=== PATIENT | male | born 1950 | race Caucasian/White ===

== ENCOUNTER 2017-10-18 09:38 | Inpatient (IN) | payer OTHER ==
--- NOTE | 2017-10-18 11:22 | PDOC ---
History of Present Illness - General Chief Complaint: Lightheaded Stated Complaint: DIZZINESS Time Seen by Provider: 10/18/17 10:16 - History of Present Illness Initial Comments: Ovidio Boothe is a 67yo man who comes in complaining of vertigo for one week. He states that approximately a week ago he started to experience vertigo after standing up. The symptoms started after a recent cruise. He went to see his primary physician, Dr Dax Bradshaw, over the weekend and had an EKG as well as testing for orthostatic hypotension. At that time, he was found to be orthostatic. Per Dr Bradshaw, his SBP dropped from 160 to 120 on standing, and his symptoms improved with BP support. Mr Boothe reports that since Tuesday, he has continued to have the same symptoms of vertigo when standing and has spent the majority of the time laying in bed. He has not had any fevers or chills, headache, cough, nausea/vomiting, focal weakness or numbness, changes in vision. He states that he has had adequate PO intake and has been staying well hydrated. Dr Bradshaw was contacted, and he states that he had planned to obtain a CTA or MRA carotid due to recent carotid US indicating ~65% left carotid stenosis. He felt that the presentation on Tuesday was most consistent with orthostatic hypotension. Past History - Past Medical History Allergies/Adverse Reactions: Allergies Allergy/AdvReac Type Severity Reaction Status Date / Time No Known Allergies Allergy Verified 10/18/17 09:58 Home Medications: Ambulatory Orders Cetirizine HCl [Zyrtec -] 10 mg PO DAILY 10/18/17 Nifedipine ER [Procardia Xl -] 60 mg PO DAILY 10/18/17 Omeprazole 20 mg PO DAILY 10/18/17 - Suicide/Smoking/Psychosocial Hx Smoking History: Never smoked Review of Systems - Review of Systems Comments:: General: No recent weight change. +fatigue HEENT: No vision changes, no hearing changes, no sore throat, no congestion Cards: No chest pain, no racing heart, no palpitations PUlm: No SOB, no cough, no wheezing GI: +heartburn, no nausea or vomiting, no change in bowel habits : No frequency, no urgency, no dysuria Endo: No excessive thirst, no temperature intolerance Heme: No unusual bruising or bleeding Vasc: No claudication Skin: No rash or lesions Neuro: No focal numbness, no focal weakness, no LOC. +vertigo Psych: No change in mood *Physical Exam - Vital Signs Last Vital Signs Temp Pulse Resp BP Pulse Ox 99.5 F 85 16 154/72 99 10/18/17 09:58 10/18/17 09:58 10/18/17 09:58 10/18/17 09:58 10/18/17 09:58 - Physical Exam Comments: 10/18/17 13:27 General: Comfortable in bed, no acute distress, appears stated age HEENT: PERRL, EOMI. Slight right-sided nystagmus. MMM, neck ROM intact Cards: RRR, no murmur noted Pulm: Comfortable on room air. Clear to auscultation bilaterally Abd: Soft, nontender, nondistended Rectal: No gross bleeding, tone intact, no external lesions, no masses palpated. Stool dark Ext: Warm, well perfused. Palpable distal pulses Neuro: A&O x3, CN grossly intact, strength 5/5 and equal bilaterally, sensation to light tough intact. Able to ambulate without loss of balance ED Treatment Course - LABORATORY CBC & Chemistry Diagram: 10/18/17 11:25 10/18/17 11:25 Medical Decision Making - Medical Decision Making Ovidio Boothe is a 67yo man with a PMH of kidney donation, now with one kidney , and CKD who presents with complaint of vertigo after standing for the past week. He was recently diagnosed with orthostatic hypotension on 10/15/17 but his symptoms have persisted. He does also have a carotid ultrasound indicating 65% carotid stenosis according to his primary physician. Concerning for posterior/cerebellar infarct or dissection, especially considering his known carotid stenosis, description of the symptoms as vertigo rather than lightheadedness, right eye nystagmus on exam, and persistence of symptoms over multiple days without improvement. Also consider continued orthostatic hypotension. - CBC, CMP, troponin, EKG - Repeat orthostatics - Noncontrast CT head for possible recent CVA causing onset of symptoms - MRA head and neck ordered to evaluate vasculature. Will avoid CTA as patient only has one kidney and has elevated Cr to over 1.4 on recent labs - 25mg meclizine for vertigo Labs returned with anemia with hgb down to 7.7, elevated LFTs, cr at baseline 1.4. - Symptoms improved following meclizine - Stool guaiac sent. On specific questioning, patient does admit to very dark stools at times as well as jail heartburn - GI consulted per request of Dr Bradshaw to evaluate for possible bleeding. No record of colonoscopy in chart - Blood transfusion declined by patient as he is a Mandaen - 40mg IV protonix ordered due to possible GI bleed Stool returned guaiac positive. Discussed patient refusal of transfusion with Dr Bradshaw; hematology consulted per request. Plan to admit for additional workup vertigo/dizziness most likely secondary to acute blood loss anemia from GI source. Patient discussed with Dr Rios. Hilary Raza PGY1 *DC/Admit/Observation/Transfer Diagnosis at time of Disposition: Upper GI bleed - Discharge Dispostion Decision to Admit order: Yes - Referrals - Patient Instructions - Post Discharge Activity
--- NOTE | 2017-10-18 11:22 | PDOC ---
Attending Attestation - ED Attending Attestation I have performed the following: I have examined & evaluated the patient, The case was reviewed & discussed with the resident, I agree w/resident's findings & plan - HPI HPI: 10/18/17 12:29 The patient is a 67 year old male, accompanied by , with a significant PMH of nephrectomy, who presents to the emergency department with 4 days of intermittent dizziness described as a room spinning sensation. The patient states he arrived from a 9 day cruise on Tuesday and when leaving the cruise ship began to experience the dizziness sensation. The patient states he did not experience the dizziness while on the cruise and felt well. The patient states he saw his PCP Dr. Maxi Bradshaw on Tuesday for a 2 day complaint of heartburn and was prescribed Prilosec with relief of the heartburn. The patient states he did not receive medication for the dizziness at that time. The patient also endorses feeling generalized weakness secondary to the dizziness and states the dizziness is made worse with movement. The patient denies any recent falls or trauma. The patient denies any history of blood clots or DVT. The patient denies chest pain, palpitations, calf swelling or tenderness, shortness of breath, or headache. Denies fever, chills, nausea, vomit, diarrhea and constipation. Denies dysuria, frequency, urgency and hematuria. Allergies: NKA Past surgical history: nephrectomy - Physicial Exam PE: 10/18/17 12:30 General: Well appearing, awake and alert, NAD. HEENT: PERRL, EOMI, +right sided nystagmus (nonvertical, no rotary), normal conjunctiva, aniceteric, moist mucus membranes Neck: neck supple, FROM, no JVD, LAD or masses; no carotid bruit Lungs: CTAB, normal and even respirations, no respiratory distress Heart: RRR, no murmurs, 2+ peripheral pulses throughout, no peripheral edema Abdomen: soft, NTND, no peritoneal signs. No CVAT Back: nontender, normal inspection and ROM MSK: no edema, TYLER x4, ROM intact. No clubbing or cyanosis. normal bulk and tone. Neuro: Alert, oriented to person time and place. CN II-XII grossly intact. Strength prox and distally 5/5 throughout. Sensation grossly intact to light touch. TYLER x4. No cerebellar signs, no dysmetria, bilateral finger to nose and heel to pond equal and symmetric. Skin: warm and well perfused, cap refill <2 sec, normal color; no rash <Jaspal Nelson - Last Filed: 10/18/17 13:05> - Resident Resident Name: Hilary Raza - Medical Decision Making 10/18/17 11:19 67-year-old presenting with HTN p/w vertigo / dizziness with movement and positional changes x 1 week, worse x 4 days.. recently on cruise ship. seen by pmd this past weekend. DDx. central vertigo, vertebral dissection, cervical dissection, vertebrobasilar insufficiency, SAH, ICH, BPPV, peripheral vertigo, labrynthitis. Anemia, GIB. orthostatics, Vasovagal episode. doubt central cause, but has had subacute sx x 1 week, will get CT head to check for stroke. Vital signs stable, wnl. labs_ remarkable for mild transaminitis, acute anemia H/H drop down to 7.7/ 23.8. Guaiac positive for blood, +dark stools noted. transfuse 1 unit pRBC, GI cs Dr. Latif requested. Interventions: include meclizine, IVF. initially planned for prBc for acute anemia. however, he is Bahai, declines transfusion and will instead continue with supportive care and serial H/H checks. CT head to rule out posterior circ stroke, concern for subacute central vertigo with persistent sx. noncontrast study, pt has solitary kidney with borderline Cr 1.4. risk of SUJIT/renal insufficiency with isolated kidney after donation. defer contrast dye studies. aleida wnl. spoke with Dr. Bradshaw, admit to service and GI cs, medical management, hydration and anemia. information discussed with prior carotid us 2 weeks ago with 65% carotid stenosis; heart burn treated as outpatient with prilosec, resolving. also normal H/H as outpatient. +orthostatic in the office at the time , dehydration vs. nifedipine/BP med effect. 10/18/17 13:44 <Niya Rios - Last Filed: 10/18/17 13:45> Heart Score/ECG Review - ECG Intrepretation Rhythm: Regular Rhythm - Hemet Hemet: Normal - ECG Impressions Normal ECG: No Non-specific ST Elevation: No Ischemic Changes: Yes (nonspecific T wave abnormalities) <Niya Rios - Last Filed: 10/18/17 13:45> Attestations - Attestations 10/18/17 12:31 Documentation prepared by Jaspal Nelson, acting as medical collector for Niya Rios MD. <Jaspal Nelson - Last Filed: 10/18/17 13:05>
[2017-10-18 11:32] LABS: HEMATOCRIT 23.8 % (35.4-49); HEMOGLOBIN 7.7 GM/dL (11.7-16.9); MCH 28.2 pg (25.7-33.7); MCHC 32.4 g/dl (32.0-35.9); MEAN CELL VOLUME 87.3 fl (80-96); MEAN PLT VOLUME 9.9 fl (7.5-11.1); PLATELET COUNT 193 K/MM3 (134-434); RBC 2.73 M/mm3 (4.00-5.60); RDW 14.2 % (11.9-15.9); WHITE BLOOD COUNT 10.6 K/mm3 (4.0-10.0)
[2017-10-18] MEDS ORDERED: MECLIZINE HCL 25 MG TABLET (FP) PO ONE (11:51)
[2017-10-18 11:54] LABS: ALBUMIN 3.4 g/dl (3.4-5.0); ANION GAP 10 (8-16); BLOOD UREA NITROGEN 25 mg/dL (7-18); CALCIUM 8.8 mg/dL (8.5-10.1); CHLORIDE 107 mmol/L (98-107); CO2 23 mmol/L (21-32); CREATININE 1.4 mg/dL (0.7-1.3); GLUCOSE,RANDOM 104 mg/dL (74-106); SGOT/AST 65 U/L (15-37); SGPT/ALT 159 U/L (12-78); SODIUM 140 mmol/L (136-145)
[2017-10-18 11:57] LABS: ALK PHOS 56 U/L (45-117); BILIRUBIN,TOTAL 0.2 mg/dL (0.2-1.0); TOT PROT 6.8 g/dl (6.4-8.2)
[2017-10-18] MEDS ORDERED: MECLIZINE HCL 25 MG TABLET (FP) ONE (11:59)
[2017-10-18] MEDS ORDERED: PANTOPRAZOLE SODIUM 40 MG VIAL IVPUSH ONE (13:09)
[2017-10-18] MEDS ORDERED: PANTOPRAZOLE SODIUM 40 MG VIAL ONE (13:12)
[2017-10-18] MEDS: SODIUM CHLORIDE 1,000 ML IV SCH ×2 (15:34→18:46)
--- NOTE | 2017-10-18 15:41 | HP ---
Admitting History and Physical - Admission Chief Complaint: presented to my office dizziness when standing x 1 wk did not tell me he had melena toild er today. denies any other complaints History Source: Patient Limitations to Obtaining History: No Limitations - Past Medical History Gastrointestinal: Yes: GI Bleed, Other (?upper gi bleed) Renal/: Yes: Other (crf solitary kidney) Heme/Onc: Yes: Other (jehova witness refusing prbcs) - Past Surgical History Past Surgical History: Yes: Nephrectomy (lt) - Smoking History Smoking history: Never smoked Have you smoked in the past 12 months: No - Alcohol/Substance Use Hx Alcohol Use: No History of Substance Use: reports: None - Social History Usual Living Arrangement: Yes: With Spouse ADL: Independent History of Recent Travel: No Home Medications - Allergies Allergies/Adverse Reactions: Allergies Allergy/AdvReac Type Severity Reaction Status Date / Time No Known Allergies Allergy Verified 10/18/17 09:58 - Home Medications Home Medications: Ambulatory Orders Cetirizine HCl [Zyrtec -] 10 mg PO DAILY 10/18/17 Nifedipine ER [Procardia Xl -] 60 mg PO DAILY 10/18/17 Omeprazole 20 mg PO DAILY 10/18/17 Family Disease History - Family Disease History Family History: Unremarkable Review of Systems - Review of Systems Gastrointestinal: reports: Melena Physical Examination Vital Signs: Vital Signs Temperature 99.5 F 10/18/17 09:58 Pulse Rate 85 10/18/17 09:58 Respiratory Rate 16 10/18/17 09:58 Blood Pressure 154/72 10/18/17 09:58 O2 Sat by Pulse Oximetry (%) 98 10/18/17 11:00 Constitutional: Yes: Well Nourished Eyes: Yes: WNL HENT: Yes: WNL Neck: Yes: WNL Cardiovascular: Yes: Other (orthostatic hypotesion) Respiratory: Yes: WNL Gastrointestinal: Yes: Melena ...Rectal Exam: Yes: Guaiac Positive Renal/: Yes: WNL Breast(s): Yes: WNL Musculoskeletal: Yes: WNL Extremities: Yes: WNL Edema: No Peripheral Pulses WNL: Yes Integumentary: Yes: WNL Neurological: Yes: WNL ...Motor Strength: WNL Psychiatric: Yes: WNL Labs: CBC, BMP 10/18/17 11:25 10/18/17 11:25 Problem List - Problems (1) Upper GI bleed Code(s): K92.2 - GASTROINTESTINAL HEMORRHAGE, UNSPECIFIED (2) Anemia Code(s): D64.9 - ANEMIA, UNSPECIFIED Assessment/Plan gi nefro hemo to see pt epogen x 1 dose chk labs in am nerosx for ventricula brain dilitation sec to ? hpoxia ppi po npo
[2017-10-18] MEDS ORDERED: EPOETIN ALFA 10,000 UNIT/1 ML VIAL SQ ONE (16:00)
--- NOTE | 2017-10-18 18:38 | CON.GI ---
Consult Consult Specialty:: GI Referred by:: Dr Maxi Bradshaw - History of Present Illness History of Present Illness: 67 y/o male Jehova's witness has episodes of melena Tuesday while in the cruise ship. He never had further episodes since then, He feels dizzy and weak but denies presyncope nor chest pains. Patient has a hemoglobin of 7 and feels better after IV hydration. Pr lying down was 93 and sitting up was 105. This was manually obtained. - History Source History Provided By: Patient, Family Member - Past Medical History Gastrointestinal: Yes: GI Bleed, Other (?upper gi bleed) Renal/: Yes: Other (crf solitary kidney) - Past Surgical History Past Surgical History: Yes: Nephrectomy (lt) - Alcohol/Substance Use Hx Alcohol Use: No History of Substance Use: reports: None - Smoking History Smoking history: Never smoked Have you smoked in the past 12 months: No - Social History ADL: Independent History of Recent Travel: No Home Medications - Allergies Allergies/Adverse Reactions: Allergies Allergy/AdvReac Type Severity Reaction Status Date / Time No Known Allergies Allergy Verified 10/18/17 09:58 - Home Medications Home Medications: Ambulatory Orders Cetirizine HCl [Zyrtec -] 10 mg PO DAILY 10/18/17 Nifedipine ER [Procardia Xl -] 60 mg PO DAILY 10/18/17 Omeprazole 20 mg PO DAILY 10/18/17 Review of Systems - Review of Systems Constitutional: denies: Fever Eyes: denies: Blurred Vision HENT: denies: Difficult Swallowing Neck: denies: Decreased ROM Cardiovascular: denies: Chest Pain Gastrointestinal: reports: Abdominal Pain, Melena. denies: Dysphagia, Indigestion, Nausea, Rectal Bleeding Physical Exam-GI Vital Signs: Vital Signs Temperature 98.5 F 10/18/17 18:13 Pulse Rate 89 10/18/17 18:13 Respiratory Rate 18 10/18/17 18:13 Blood Pressure 140/67 10/18/17 18:13 O2 Sat by Pulse Oximetry (%) 98 10/18/17 15:41 Constitutional: Yes: Well Nourished Eyes: Yes: Conjunctiva Clear HENT: Yes: Atraumatic Neck: Yes: Supple Cardiovascular: Yes: Regular Rate and Rhythm, Murmur Respiratory: Yes: CTA Bilaterally ...Palpate: Yes: Soft. No: Firm/Rigid, Guarding, Hepatomegaly, Mass, Pulsatile Mass, Splenomegaly, Tenderness Labs: CBC, BMP 10/18/17 11:25 10/18/17 11:25 Problem List - Problems (1) Upper GI bleed Assessment/Plan: associated with orthostatic hypotension R> the patient and family was made aware of the patients's condition. Patient will be transferred to ICU. Spoke to Dr Bradshaw and Dr Cross. IV iron and procrit to be given The patient is not a candidate for any GI procedures until clinically stable. The daughter raised question of transfer to [place] for blood less surgery. I explained to them that we still need to stailize his blood pressure with bloodless products. Code(s): K92.2 - GASTROINTESTINAL HEMORRHAGE, UNSPECIFIED
[2017-10-18 19:10] VITALS: BMI 29.5
--- NOTE | 2017-10-18 19:38 | CONSULT ---
Consult Consult Specialty:: Hematology-Oncology Referred by:: Dr. Latif Reason for Consultation:: Cheondoism. 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 - History Source History Provided By: Patient Limitations to Obtaining History: No Limitations - Past Medical History Gastrointestinal: Yes: GI Bleed, Other (history of ulcer disease years ago ) Renal/: Yes: Other (donated left kidney to ) Heme/Onc: Yes: Other (Jehovah witness) - Past Surgical History Past Surgical History: Yes: Nephrectomy (lt) - Alcohol/Substance Use Hx Alcohol Use: No History of Substance Use: reports: None - Smoking History Smoking history: Former smoker (smoked 20 pack years - discontinued 1989) Have you smoked in the past 12 months: No - Social History Usual Living Arrangement: With Spouse ADL: Independent History of Recent Travel: No Home Medications - Allergies Allergies/Adverse Reactions: Allergies Allergy/AdvReac Type Severity Reaction Status Date / Time No Known Allergies Allergy Verified 10/18/17 09:58 - Home Medications Home Medications: Ambulatory Orders Cetirizine HCl [Zyrtec -] 10 mg PO DAILY 10/18/17 Nifedipine ER [Procardia Xl -] 60 mg PO DAILY 10/18/17 Omeprazole 20 mg PO DAILY 10/18/17 Home Medications (free text): omeperazole begun 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 denies: Diaphoresis, Fever, Loss of Appetite , Night Sweats, Unintentional Wgt. Loss Eyes: denies: Blurred Vision, Double Vision HENT: denies: Difficult Swallowing, Epistaxis, Throat Pain Neck: denies: Stiffness, Tenderness Cardiovascular: reports: Shortness of Breath. denies: Chest Pain Respiratory: reports: SOB, SOB on Exertion Gastrointestinal: reports: Melena Genitourinary: denies: Burning, Flank Pain Musculoskeletal: denies: Back Pain, Muscle Pain Integumentary: denies: Bruising, Erythema Neurological: reports: Dizziness Endocrine: reports: No Symptoms Hematology/Lymphatic: reports: No Symptoms Psychiatric: reports: No Symptoms Physical Exam Vital Signs: Vital Signs Temperature 98.5 F 10/18/17 18:13 Pulse Rate 89 10/18/17 18:13 Respiratory Rate 18 10/18/17 18:13 Blood Pressure 140/67 10/18/17 18:13 O2 Sat by Pulse Oximetry (%) 98 10/18/17 15:41 Constitutional: Yes: No Distress Eyes: Yes: PERRL. No: Ptosis, Sclera Icterus HENT: Yes: Atraumatic, Normocephalic Neck: Yes: Supple, Trachea Midline. No: Lymphadenopathy Cardiovascular: Yes: Regular Rate and Rhythm Respiratory: Yes: Regular, CTA Bilaterally Gastrointestinal: Yes: Normal Bowel Sounds, Soft, Melena. 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
[2017-10-18] MEDS ORDERED: FOLIC ACID 5 MG/1 ML SQ ONE ×2 (19:52→20:15)
--- NOTE | 2017-10-18 20:05 | CONSULT ---
Consultation: REQUESTING PROVIDER: CONSULT REQUEST: We have been asked to medically evaluate this patient for ( intensive care). HISTORY OF PRESENT ILLNESS: 67 y/o male with PMH of ulcer ds came to hospital with complaint of dizziness from 4 days and heart burn 6 days. Patient states that he gets dizzy when ever he stands feels like lightheaded and room is spinning. Patient was also reports one dark color stool 4 days ago but no reji Patient saw his pcp and found to have orthostatic hypotension In ER Hb came out to be 7.7 with positive stool for occult. Now feeling better after getting IV fluid. Denies NSAID, aspirin, spicy food , alcohol and smoking. Denies loss of weight and apatite, diarrhoea, vomiting, haemoptysis, pain abdomen. As per Pt last colonoscopy and endoscopy was done 10 years ago which was normal. BP 140/67, DE 89 PHYSICAL EXAMINATION Vital Signs - 24 hr 10/18/17 10/18/17 10/18/17 09:58 11:00 15:41 Temperature 99.5 F 98.4 F Pulse Rate 85 Pulse Rate [ 71 Apical] Respiratory 16 18 Rate Blood Pressure 154/72 Blood Pressure 142/77 [Right Arm] O2 Sat by Pulse 99 98 98 Oximetry (%) 10/18/17 18:13 Temperature 98.5 F Pulse Rate 89 Pulse Rate [ Apical] Respiratory 18 Rate Blood Pressure 140/67 Blood Pressure [Right Arm] O2 Sat by Pulse Oximetry (%) GENERAL: Awake, alert, and fully oriented, in no acute distress. EARS, NOSE, THROAT: Moist mucous membranes. LUNGS: Breath sounds equal, clear to auscultation bilaterally. No wheezes, and no crackles. No accessory muscle use. HEART: s1s2 normal ABDOMEN: Soft, nontender, not distended, normoactive bowel sounds, no guarding, no rebound, no masses. LOWER EXTREMITIES: 2+ pulses, warm, well-perfused. No calf tenderness. No peripheral edema. SKIN: Warm, dry, normal turgor, no rashes or lesions noted. Laboratory Results - last 24 hr 10/18/17 10/18/17 10/18/17 11:25 11:25 13:04 WBC 10.6 H RBC 2.73 L Hgb 7.7 L Hct 23.8 L MCV 87.3 MCH 28.2 MCHC 32.4 RDW 14.2 Plt Count 193 MPV 9.9 Sodium 140 Potassium 4.0 Chloride 107 Carbon Dioxide 23 Anion Gap 10 BUN 25 H Creatinine 1.4 H Creat Clearance w eGFR 50.70 Random Glucose 104 Calcium 8.8 Total Bilirubin 0.2 AST 65 H ALT 159 H Alkaline Phosphatase 56 Troponin I < 0.02 Total Protein 6.8 Albumin 3.4 Stool Occult Blood Positive Active Medications Generic Name Dose Route Start Last Admin Trade Name Freq PRN Reason Stop Dose Admin Cyanocobalamin 1,000 mcg 10/25/17 10:00 Vitamin B12 Injection - IM Q7D@1000 NALINI Epoetin Jone 20,000 unit 10/18/17 19:48 Epogen - SQ 10/18/17 19:49 DAILY ONE Folic Acid 1 mg 10/18/17 19:52 Folic Acid Injection - SQ 10/18/17 19:53 DAILY ONE Sodium Chloride 1,000 mls @ 125 mls/hr 10/18/17 14:45 10/18/17 18:46 Normal Saline - IV 125 mls/hr ASDIR NALINI Administration Iron Sucrose 300 mg/ Sodium 250 mls @ 250 mls/hr 10/18/17 20:00 Chloride IVPB DAILY@0800 NALINI Pantoprazole Sodium 40 mg 10/19/17 10:00 Protonix - PO DAILY NALINI ASSESSMENT/PLAN: Problem list Anemia GI bleed, likely upper H/o ulcer ds 20 years ago. Heart burn Dizziness HTN Plan: IV fluid NS Monitor vitals Keep MAP > 65 Two IV bore canula No 18. IV protonix drip. Sq epogen IM vit B12 Folic acid sq IV iron. GI on case Hematology on family caseworker for GI bleed hold HTN meds for now. discussed with dr hollins Visit type - Emergency Visit Emergency Visit: Yes ED Registration Date: 10/18/17 Care time: The patient presented to the Emergency Department on the above date and was hospitalized for further evaluation of their emergent condition. - New Patient This patient is new to me today: Yes Date on this admission: 10/19/17 - Critical Care Critical Care patient: Yes Total Critical Care Time (in minutes): 45 Critical Care Statement: The care of this patient involved high complexity decision making to prevent further life threatening deterioration of the patient 's condition and/or to evaluate & treat vital organ system(s) failure or risk of failure.
[2017-10-18] MEDS ORDERED: EPOETIN ALFA 20,000 UNIT/1 ML VIAL SQ ONE ×2 (20:15→22:30)
[2017-10-18] MEDS: IRON SUCROSE INJECTION 300 MG in SODIUM CHLORIDE 235 ML IVPB SCH (21:42)
[2017-10-18] MEDS: PANTOPRAZOLE SODIUM 80 MG in SODIUM CHLORIDE 100 ML IVPB SCH (21:42)
[2017-10-18 23:24] LABS: MCH 28.4 pg (25.7-33.7); MCHC 32.7 g/dl (32.0-35.9); MEAN CELL VOLUME 86.8 fl (80-96); MEAN PLT VOLUME 8.9 fl (7.5-11.1); PLATELET COUNT 164 K/MM3 (134-434); RBC 2.31 M/mm3 (4.00-5.60); RDW 13.8 % (11.9-15.9); WHITE BLOOD COUNT 8.7 K/mm3 (4.0-10.0)
[2017-10-18 23:34] LABS: HEMOGLOBIN 6.5 GM/dL (11.7-16.9)
[2017-10-19] MEDS ORDERED: ACETAMINOPHEN 325 MG TABLET (FP) PO ONE (06:02)
[2017-10-19] MEDS: PANTOPRAZOLE SODIUM 80 MG in SODIUM CHLORIDE 100 ML IVPB SCH ×2 (06:31→17:35)
[2017-10-19 06:33] LABS: BASO % 0.5 % (0-2.0); EOS % 2.9 % (0-4.5); HEMATOCRIT 20.1 % (35.4-49); MCH 29.5 pg (25.7-33.7); MCHC 33.8 g/dl (32.0-35.9); MEAN CELL VOLUME 87.4 fl (80-96); MEAN PLT VOLUME 9.4 fl (7.5-11.1); NEUT % 58.6 % (42.8-82.8); PLATELET COUNT 157 K/MM3 (134-434); RDW 14.4 % (11.9-15.9); WHITE BLOOD COUNT 9.2 K/mm3 (4.0-10.0)
[2017-10-19 06:46] LABS: INR 1.03 (0.82-1.09); PROTHROMBIN TIME (PATIENT) 11.6 SEC (9.7-13.0)
[2017-10-19] MEDS: SODIUM CHLORIDE 1,000 ML IV SCH (07:05)
[2017-10-19 07:24] LABS: ALBUMIN 2.8 g/dl (3.4-5.0); ANION GAP 8 (8-16); BLOOD UREA NITROGEN 16 mg/dL (7-18); CHLORIDE 113 mmol/L (98-107); CO2 23 mmol/L (21-32); CREATININE 1.3 mg/dL (0.7-1.3); GLUCOSE,RANDOM 104 mg/dL (74-106); SGOT/AST 38 U/L (15-37); SGPT/ALT 102 U/L (12-78); SODIUM 144 mmol/L (136-145)
[2017-10-19 07:25] LABS: ALK PHOS 48 U/L (45-117); BILIRUBIN,TOTAL 0.2 mg/dL (0.2-1.0); TOT PROT 5.6 g/dl (6.4-8.2)
[2017-10-19 08:06] LABS: HEMOGLOBIN 6.8 GM/dL (11.7-16.9)
[2017-10-19] MEDS ORDERED: PT OWN MED DRAWER 7, Y5N ONE (08:18)
[2017-10-19] MEDS: IRON SUCROSE INJECTION 300 MG in SODIUM CHLORIDE 235 ML IVPB SCH (09:16)
[2017-10-19] MEDS: FOLIC ACID 1 MG TABLET (FP) PO SCH (09:44)
[2017-10-19] MEDS ORDERED: PANTOPRAZOLE 40 MG TABLET (FP) PO SCH (10:00)
--- NOTE | 2017-10-19 11:27 | PN ---
Teaching Attending Note Name of Resident: Shine Bradshaw ATTENDING PHYSICIAN STATEMENT I saw and evaluated the patient. I reviewed the resident's note and discussed the case with the resident. I agree with the resident's findings and plan as documented. SUBJECTIVE: Pt seen and examined in the ICU. Feels better today, no further dizziness. No shortness of breath or chest pain. H/H stable from yesterday. No bowel movements overnight. OBJECTIVE: Vital Signs Period Temp Pulse Resp BP Sys/[place] Pulse Ox Last 24 Hr 98.4 F-99.1 F 71-96 18-23 95-166/50-77 98-98 Intake & Output 10/16/17 10/17/17 10/18/17 10/19/17 23:59 23:59 23:59 23:59 Intake Total 375 1000 Output Total 500 1000 Balance -125 0 Weight 110.223 kg Gen: NAD at rest Heart: RRR Lung: decreased breath sounds at the bases Abd: soft, nontender Ext: no edema CBC, BMP 10/19/17 05:30 10/19/17 05:30 Active Medications Cyanocobalamin (Vitamin B12 Injection -) 1,000 mcg IM Tu [facility] Epoetin Jone (Procrit -) 20,000 unit SQ DAILY [facility] Folic Acid (Folic Acid -) 1 mg PO DAILY [facility] Last Admin: 10/19/17 09:44 Dose: 1 mg Sodium Chloride (Normal Saline -) 1,000 mls @ 125 mls/hr IV ASDIR [facility] Last Admin: 10/19/17 07:05 Dose: 125 mls/hr Iron Sucrose 300 mg/ Sodium (Chloride) 250 mls @ 250 mls/hr IVPB DAILY@0800 [facility] Last Admin: 10/19/17 09:16 Dose: 250 mls/hr Pantoprazole Sodium 80 mg/ (Sodium Chloride) 100 mls @ 10 mls/hr IVPB Q10H [facility] Last Admin: 10/19/17 06:31 Dose: 10 mls/hr ASSESSMENT AND PLAN: Anemia r/o GI Bleed HTN Congregation - monitor H/H - continue procrit, vitamin B12, folate - venofer - IVF - NPO - protonix - GI f/u - DVT prophylaxis - no evidence of bleeding and H/H has been stable, can monitor on floor if PM H /H stable
[2017-10-19] MEDS: EPOETIN ALFA 20,000 UNIT/1 ML VIAL SQ SCH (11:51)
--- NOTE | 2017-10-19 12:29 | CONSULT ---
Consult - text type - Consultation Consultation Note: Renal consult for SUJIT This is a 67 year old Gentleman with PMhx of Donor Nephrectomy (1999), Hypertension, Gastic ulcers who presented with dizziness and found to have acute anemia in setting of GI bleed and SUJIT. 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 Denies any history of significant renal impairment. Has not had any additional melena since admission. Denies any Abd pain, N/V/D. No SOB, chest pain. Making urine w/o difficulty. No dysuria. PMhx:as above Allergies: NKDA Family Hx: NC Social Hx: No T/A/D ROS: as per HPI Home Medications Medication Instructions Recorded Cetirizine HCl [Zyrtec -] 10 mg PO DAILY 10/18/17 Nifedipine ER [Procardia Xl -] 60 mg PO DAILY 10/18/17 Omeprazole 20 mg PO DAILY 10/18/17 Vital Signs Temperature 98.6 F 10/19/17 10:00 Pulse Rate 80 10/19/17 10:00 Respiratory Rate 20 10/19/17 10:00 Blood Pressure 135/66 10/19/17 10:00 O2 Sat by Pulse Oximetry (%) 98 10/19/17 08:08 Intake & Output 10/16/17 10/17/17 10/18/17 10/19/17 23:59 23:59 23:59 23:59 Intake Total 375 1000 Output Total 500 1000 Balance -125 0 Weight 110.223 kg NAD awake and alert RRR, No M/R CTA, no rales soft NT/ND no bladder distension No LE edema, clubbing or cyanosis CBC, BMP 10/19/17 05:30 10/19/17 05:30 Laboratory Tests 10/19/17 05:30 Calcium 8.0 L Albumin 2.8 L Current Medications Cyanocobalamin (Vitamin B12 Injection -) 1,000 mcg IM Tu [facility] Epoetin Jone (Procrit -) 20,000 unit SQ DAILY [facility] Last Admin: 10/19/17 11:51 Dose: 20,000 unit Folic Acid (Folic Acid -) 1 mg PO DAILY [facility] Last Admin: 10/19/17 09:44 Dose: 1 mg Iron Sucrose 300 mg/ Sodium (Chloride) 250 mls @ 250 mls/hr IVPB DAILY@0800 [facility] Last Admin: 10/19/17 09:16 Dose: 250 mls/hr Pantoprazole Sodium 80 mg/ (Sodium Chloride) 100 mls @ 10 mls/hr IVPB Q10H [facility] Last Admin: 10/19/17 06:31 Dose: 10 mls/hr Sodium Chloride (Normal Saline -) 1,000 mls @ 75 mls/hr IV ASDIR [facility] 67 year old Gentleman with PMhx of Hypertension, Gastic ulcers who presented with dizziness and found to have acute anemia in setting of GI bleed and SUJIT. #SUJIT vs. CKD #Acute GI bleed #Acute Anemia #Hx of Hypertension Renal function stable during this admission no acidosis, hyperkalemia, uremia will obtain outpatient records to establish baseline renal function continue MIRELLA and Iron as per Heme Minimize blood draws, consider using pediatric tubes maintain off anti-hypertensives Keep MAP > 65 Thank you Will follow Blayne Lopez DO
--- NOTE | 2017-10-19 13:21 | HP ---
Admitting History and Physical - Admission Chief Complaint: 67 y/o came to er sent by me c/o dizzyness upon standing. melana stool gives h/o motrin for 1 wk for dental work. denies any other complaints History Source: Patient Limitations to Obtaining History: No Limitations - Past Medical History Gastrointestinal: Yes: GI Bleed, Other (history of ulcer disease years ago ) Renal/: Yes: Other (donated left kidney to ) Heme/Onc: Yes: Other (Jehovah witness) - Past Surgical History Past Surgical History: Yes: Nephrectomy (lt) - Advance Directives Advance Directives: Yes: Health Care Proxy - Smoking History Smoking history: Former smoker (smoked 20 pack years - discontinued 1989) Have you smoked in the past 12 months: No - Alcohol/Substance Use Hx Alcohol Use: No History of Substance Use: reports: None - Social History ADL: Independent History of Recent Travel: No Home Medications - Allergies Allergies/Adverse Reactions: Allergies Allergy/AdvReac Type Severity Reaction Status Date / Time No Known Allergies Allergy Verified 10/18/17 09:58 - Home Medications Home Medications: Ambulatory Orders Cetirizine HCl [Zyrtec -] 10 mg PO DAILY 10/18/17 Nifedipine ER [Procardia Xl -] 60 mg PO DAILY 10/18/17 Omeprazole 20 mg PO DAILY 10/18/17 Family Disease History - Family Disease History Family History: Unremarkable Family Disease History: Other: Father (alcoholism), Mother (alcoholism) Physical Examination Vital Signs: Vital Signs Temperature 98.6 F 10/19/17 10:00 Pulse Rate 76 10/19/17 12:00 Respiratory Rate 18 10/19/17 12:00 Blood Pressure 126/68 10/19/17 12:00 O2 Sat by Pulse Oximetry (%) 98 10/19/17 08:08 Labs: CBC, BMP 10/19/17 05:30 10/19/17 05:30 Problem List - Problems (1) Upper GI bleed Code(s): K92.2 - GASTROINTESTINAL HEMORRHAGE, UNSPECIFIED (2) Anemia Code(s): D64.9 - ANEMIA, UNSPECIFIED Assessment/Plan stop iv see if h/h goes up feed full liq diet gi to scope when stable chk cbc
--- NOTE | 2017-10-19 13:56 | CON.CARD ---
Consult Consult Specialty:: Cardiology Referred by:: Dr. Bradshaw Reason for Consultation:: Preop, dizziness - History of Present Illness Chief Complaint: dizziness, melena History of Present Illness: 67 year old man Jehovahs witness pmh PUD years ago, CKD, donor nephrectomy 1999 , HTN, admitted with dizziness, GERD, melena, found to have severe symptomatic anemia. Pt planned for EGD. Pt seen and examined in ICU today in nad. States he is feeling better. Pt denies any chest pain or sob either at rest or with exertion. States that he works for the [employer] and [place] limitation to his exercise tolerance. denies pnd, orthopnea, or LE edema. - History Source History Provided By: Patient, Family Member, Medical Record Limitations to Obtaining History: No Limitations - Past Medical History Cardio/Vascular: Yes: HTN Gastrointestinal: Yes: GI Bleed, Other (history of ulcer disease years ago ) Renal/: Yes: Other (donated left kidney to ) - Past Surgical History Past Surgical History: Yes: Nephrectomy (lt) - Alcohol/Substance Use Hx Alcohol Use: No History of Substance Use: reports: None - Smoking History Smoking history: Former smoker (smoked 20 pack years - discontinued 1989) Have you smoked in the past 12 months: No - Social History Usual Living Arrangement: With Spouse ADL: Independent History of Recent Travel: No Home Medications - Allergies Allergies/Adverse Reactions: Allergies Allergy/AdvReac Type Severity Reaction Status Date / Time No Known Allergies Allergy Verified 10/18/17 09:58 - Home Medications Home Medications: Ambulatory Orders Cetirizine HCl [Zyrtec -] 10 mg PO DAILY 10/18/17 Nifedipine ER [Procardia Xl -] 60 mg PO DAILY 10/18/17 Omeprazole 20 mg PO DAILY 10/18/17 Family Disease History - Family Disease History Family Disease History: Other: Father (alcoholism), Mother (alcoholism) Review of Systems - Review of Systems Constitutional: reports: Weakness. denies: No Symptoms, Chills, Diaphoresis, Fever, Lethargy, Loss of Appetite, Malaise, Night Sweats, Unintentional Wgt. Loss, Other Eyes: denies: No Symptoms, Blind Spots, Blurred Vision, Double Vision, Eye Pain , Floaters, Photophobia, Recent Change in Vision, Other HENT: denies: No Symptoms, Difficult Swallowing, Ear Discharge, Ear Pain, Epistaxis, Gingival Bleeding, Hearing Loss, Mouth Swelling, Nasal Congestion, Ocular Prosthesis, Throat Pain, Toothache, Ringing in Ears, Other Neck: denies: No Symptoms, Decreased ROM, Lumps, Pain on Movement, Stiffness, Swollen Glands, Tenderness, Other Cardiovascular: denies: No Symptoms, Chest Pain, Edema, Palpitations, Shortness of Breath, Other Respiratory: denies: No Symptoms, Cough, Exercise Intolerance, Hemoptysis, Orthopnea, PND, Snoring, SOB, SOB on Exertion, Wheezing, Other Gastrointestinal: reports: Indigestion, Melena. denies: No Symptoms, Abdominal Pain, Bloating, Constipation, Diarrhea, Dysphagia, Nausea, Rectal Bleeding, Vomiting, Vomiting Blood, Other Genitourinary: denies: No Symptoms, Burning, Discharge, Dysuria, Flank Pain, Frequency, Hematuria, Incontinence, Lesions, Menses, Pain, Testicular Mass, Testicular Pain, Testicular Swelling, Urgency, Vaginal Bleeding, Other Breasts: denies: No Symptoms Reported, See HPI, Breast Implants, Discharge from Nipple, Lumps, Pain, Skin Changes, Other Musculoskeletal: denies: No Symptoms, Back Pain, Crepitus, Decreased ROM, Extremity Pain, Joint Pain, Joint Swelling, Muscle Pain, Muscle Cramps, Muscle Weakness, Other Integumentary: denies: No Symptoms, Blister, Bruising, Change in Color, Eczema, Erythema, Incision, Lesions, Lump, Pallor, Pruritis, Rash, Wound, Other Neurological: reports: Dizziness. denies: No Symptoms, Change in LOC, Change in Speech, Confusion, Headache, Incoordination, Numbness, Parasthesia, Pre- Existing Deficit, Seizure, Syncope, Tremors, Unsteady Gait, Weakness, Other Endocrine: denies: No Symptoms, Excessive Sweating, Flushing, Increased Hunger, Increased Thirst, Intolerance to Cold, Intolerance to Heat, Unexplained Weight Gain, Unexplained Weight Loss, Other Hematology/Lymphatic: denies: No Symptoms, Easily Bruised, Excessive Bleeding, Swollen Glands, Other Psychiatric: denies: No Symptoms, Altered Sleep Pattern, Anxiety, Depression, Hallucinations, Panic, Paranoia, Suicidal, Other - Risk Factors Known Risk Factors: Yes: Hypertension Vital Signs: Vital Signs Temperature 98.6 F 10/19/17 10:00 Pulse Rate 76 10/19/17 12:00 Respiratory Rate 18 10/19/17 12:00 Blood Pressure 126/68 10/19/17 12:00 O2 Sat by Pulse Oximetry (%) 98 10/19/17 08:08 Constitutional: Yes: Well Nourished, No Distress, Calm Eyes: Yes: WNL, Conjunctiva Clear, EOM Intact, PERRL HENT: Yes: WNL, Atraumatic, Normocephalic Neck: Yes: WNL, Supple, Trachea Midline Respiratory: Yes: WNL, Regular, CTA Bilaterally. No: Rales, Rhonchi, Wheezes Gastrointestinal: Yes: WNL, Normal Bowel Sounds, Soft. No: Distention, Tenderness Renal/: Yes: WNL Cardiovascular: Yes: WNL, Regular Rate and Rhythm. No: Bradycardia, Tachycardia , Pulse Irregular, Gallop, Rub, Varicosities JVD: No Carotid Bruit: No PMI: Non-Displaced Heart Sounds: Yes: S1, S2. No: Split S2, S3, S4, Clicks, Gallop, Rub, Bruit Murmur: No: Systolic Murmur, Diastolic Murmur Musculoskeletal: Yes: WNL Extremities: Yes: WNL Edema: No Peripheral Pulses WNL: Yes Peripheral Pulses: 2+ Left Doralis Pedis, 2+ Right Dorsalis Pedis Integumentary: Yes: WNL Neurological: Yes: WNL, Alert, Oriented, Cran Nerves II-XII Intact ...Motor Strength: WNL Psychiatric: Yes: WNL, Alert, Oriented - Other Data Labs, Other Data: CBC, BMP 10/19/17 05:30 INR, PTT INR 1.03 (0.82-1.09) 10/19/17 05:30 ekg-nsr 95bpm, LVH, cannot rule out septal infarct, repolarization abnl Imaging - Results Chest X-ray: Report Reviewed, Image Reviewed EKG: Report Reviewed, Image Reviewed Other: Report Reviewed, Image Reviewed (tele-nsr, occ pvc, apc) Assessment/Plan 67 year old man Jehovahs witness pmh PUD years ago, CKD, donor nephrectomy 1999 , HTN, admitted with dizziness, GERD, melena, found to have severe symptomatic anemia. Pt planned for EGD. Pt seen and examined in ICU today in nad. States he is feeling better. Pt denies any chest pain or sob either at rest or with exertion. States that he works for the [employer] and he is [place] without limitation to his exercise tolerance. denies pnd, orthopnea, or LE edema. Preop cardiac evaluation -At this time there is no absolute cardiac contraindication to the planned endoscopy -would recc to proceed without delay for additional cardiac work up. -HTN is adequately controlled at this time. Please call with any additional questions.
[2017-10-19 14:05] LABS: HEMATOCRIT 21.7 % (35.4-49); HEMOGLOBIN 7.1 GM/dL (11.7-16.9); MCH 28.7 pg (25.7-33.7); MCHC 32.7 g/dl (32.0-35.9); MEAN CELL VOLUME 87.9 fl (80-96); MEAN PLT VOLUME 9.3 fl (7.5-11.1); PLATELET COUNT 184 K/MM3 (134-434); RBC 2.47 M/mm3 (4.00-5.60); RDW 14.7 % (11.9-15.9); WHITE BLOOD COUNT 9.1 K/mm3 (4.0-10.0)
--- NOTE | 2017-10-19 14:21 | PN ---
Progress Note (short form) - Note Progress Note: Patient seen and examined DENIES CHEST Pain, SOB,dizziness Last Vital Signs Temp Pulse Resp BP Pulse Ox 98.6 F 79 22 143/66 98 10/19/17 10:00 10/19/17 14:00 10/19/17 14:00 10/19/17 14:00 10/19/17 08:08 HEENT: DIANA, EOM Intact Oropharynx: No thrush, No mucositis Cor: RSR, No murmurs, No gallops Lungs: Clear to P&A Abd: Soft, Normal bowel sounds, No organomegaly Ext:No significant edema Skin: No rashes, Integument intact CBC, BMP 10/19/17 13:30 10/19/17 05:30 Current Medications Generic Name Dose Route Start Last Admin Trade Name Freq PRN Reason Stop Dose Admin Cyanocobalamin 1,000 mcg 10/25/17 10:00 Vitamin B12 Injection - IM Tu [facility] Epoetin Jone 20,000 unit 10/19/17 10:00 10/19/17 11:51 Procrit - SQ 20,000 unit DAILY [facility] Administration Folic Acid 1 mg 10/19/17 10:00 10/19/17 09:44 Folic Acid - PO 1 mg DAILY [facility] Administration Iron Sucrose 300 mg/ Sodium 250 mls @ 250 mls/hr 10/18/17 20:00 10/19/17 09: 16 Chloride IVPB 250 mls/hr DAILY@0800 [facility] Administration Pantoprazole Sodium 80 mg/ 100 mls @ 10 mls/hr 10/18/17 20:15 10/19/17 06:31 Sodium Chloride IVPB 10 mls/hr Q10H [facility] Administration 8 MG/HR Impression: Congregational with GI bleeding Receiving hematinics with procrit , venofer, B-12, and folate Hb- 7,7 on admission . Either from dilution or bleeding or both declined to 6.5g. Steady increment to 6.8g and now 7.1g.. Plan: GI endocopy when increased Hb/Hct Continue Hematinics No Need for dextran currently- Asymptomatic at rest, adequate BP, and dextran will dilute out Hb/Hct. Problem List - Problems (1) Anemia Code(s): D64.9 - ANEMIA, UNSPECIFIED (2) Upper GI bleed Code(s): K92.2 - GASTROINTESTINAL HEMORRHAGE, UNSPECIFIED
--- NOTE | 2017-10-19 14:21 | CONSULT ---
Consult - text type - Consultation Consultation Note: NEUROSURGERY CONSULTATION Ovidio Boothe is a 67 year old male with a history of Orthopnea since October 15. He presented to the [facility] ER yesterday and was evaluated by his PCP, Maxi Bradshaw. The patient underwent Head CT which reveals mild volume loss, but was not remarkable for acute intracranial pathology. There is no clear suggestion of stroke, hemorrhage, mass or hydrocephalus. Upon further review, the patient was found to have tarry black stool and presumed Upper GI bleeding. The patient is awake and alert and sitting comfortably in bed. There is no suggestion of diminished mental status or Neurological compromise on cursory exam. The patient is a Jainism and will not accept blood transfusion, however is amenable to Epogen. At this time, there is no acute Neurosurgical intervention indicated.
[2017-10-19] MEDS ORDERED: SODIUM CHLORIDE 1,000 ML IV SCH (15:00)
--- NOTE | 2017-10-19 16:08 | PN ---
Physical Exam: SUBJECTIVE: Patient seen and examined today in icu. C/o headache this am. Denies chest pain, headache, nausea, or vomiting. OBJECTIVE: Vital Signs Temperature 98.6 F 10/19/17 15:46 Pulse Rate 76 10/19/17 15:46 Respiratory Rate 22 10/19/17 15:46 Blood Pressure 143/66 10/19/17 14:00 O2 Sat by Pulse Oximetry (%) 98 10/19/17 08:08 GENERAL: AAOx3, NAD HEAD: NC/AT EYES: EOMI ENT: Ears normal, nares patent, oropharynx clear without exudates, moist mucous membranes. NECK: Trachea midline, full range of motion, supple. LUNGS: CTA B/L HEART: RRR, -m/r/g, s1,s2 ABDOMEN: nd, nt, soft, bs+ EXTREMITIES: No cyanosis, well perfused. Capillary refill wnl. NEUROLOGICAL: CNo neuro deficits PSYCH: Normal mood, normal affect. SKIN: Warm, dry, Laboratory Results - last 24 hr 10/18/17 10/19/17 10/19/17 23:00 05:30 05:30 WBC 8.7 9.2 RBC 2.31 L 2.30 L Hgb 6.5 L* 6.8 L* Hct 20.0 L D 20.1 L MCV 86.8 87.4 MCH 28.4 29.5 MCHC 32.7 33.8 RDW 13.8 14.4 Plt Count 164 157 MPV 8.9 D 9.4 Absolute Neuts (auto) 5.4 Neutrophils % 58.6 Lymphocytes % 31.0 Monocytes % 7.0 Eosinophils % 2.9 Basophils % 0.5 Nucleated RBC % 0 PT with INR 11.60 INR 1.03 Sodium Potassium Chloride Carbon Dioxide Anion Gap BUN Creatinine Creat Clearance w eGFR Random Glucose Calcium Total Bilirubin AST ALT Alkaline Phosphatase Total Protein Albumin 10/19/17 10/19/17 05:30 13:30 WBC 9.1 RBC 2.47 L Hgb 7.1 L Hct 21.7 L MCV 87.9 MCH 28.7 MCHC 32.7 RDW 14.7 Plt Count 184 MPV 9.3 Absolute Neuts (auto) Neutrophils % Lymphocytes % Monocytes % Eosinophils % Basophils % Nucleated RBC % PT with INR INR Sodium 144 Potassium 4.0 Chloride 113 H Carbon Dioxide 23 Anion Gap 8 BUN 16 Creatinine 1.3 Creat Clearance w eGFR 55.23 Random Glucose 104 Calcium 8.0 L Total Bilirubin 0.2 AST 38 H D ALT 102 H D Alkaline Phosphatase 48 Total Protein 5.6 L Albumin 2.8 L Active Medications Generic Name Dose Route Start Last Admin Trade Name Rohit PRN Reason Stop Dose Admin Cyanocobalamin 1,000 mcg 10/25/17 10:00 Vitamin B12 Injection - IM Tu [facility] Epoetin Jone 20,000 unit 10/19/17 10:00 10/19/17 11:51 Procrit - SQ 20,000 unit DAILY [facility] Administration Folic Acid 1 mg 10/19/17 10:00 10/19/17 09:44 Folic Acid - PO 1 mg DAILY [facility] Administration Iron Sucrose 300 mg/ Sodium 250 mls @ 250 mls/hr 10/18/17 20:00 10/19/17 09: 16 Chloride IVPB 250 mls/hr DAILY@0800 [facility] Administration Pantoprazole Sodium 80 mg/ 100 mls @ 10 mls/hr 10/18/17 20:15 10/19/17 06:31 Sodium Chloride IVPB 10 mls/hr Q10H [facility] Administration 8 MG/HR ASSESSMENT/PLAN: 67 y/o M with PMH of peptic ulcer disease 20+ years ago, ckd, donor nephrectomy (1999), HTN came to [facility] ED c/o dizziness for 4 days and heart burn 6 days. Patient states that he gets dizzy when ever he stands, becomes lightheaded and senses the room spinning. Patient also reports one dark color stool 4 days ago but no melena. G.I Anemia 2/2 Upper G.I bleed, Orthostatic Hypotension -H/H 6.5/20 on admission. Today 7.1/21.7. Fluids stopped to trend H/H and r/o dilution anemia -IV iron 300 mg IV and procrit 20,000 U SQ - Pantoprazole 80 mg -Folic acid 1 mg po daily -EGD When clinically stable -GI on Board Liquid diet Nephro on board Heme/Onc on board Cardio: HTN Nifedipine 60 mg po daily Stopped due to hypotension Cardiology on board CT Head 10/18/17- negative for intracranial bleed. FEN No fluids Monitor electrolytes Full Liquid Diet DVT ppx SCD's Currently ambulating oob. Dispo Will monitor in icu Visit type - Emergency Visit Emergency Visit: Yes ED Registration Date: 10/18/17 Care time: The patient presented to the Emergency Department on the above date and was hospitalized for further evaluation of their emergent condition. - New Patient This patient is new to me today: Yes Date on this admission: 10/19/17 - Critical Care Critical Care patient: Yes Total Critical Care Time (in minutes): 35 Critical Care Statement: The care of this patient involved high complexity decision making to prevent further life threatening deterioration of the patient 's condition and/or to evaluate & treat vital organ system(s) failure or risk of failure.
--- NOTE | 2017-10-19 17:46 | PN ---
GI Progress Note Subjective: tolerating clear liquid - Objective Vital Signs: Vital Signs Temperature 98.6 F 10/19/17 17:00 Pulse Rate 76 10/19/17 15:46 Respiratory Rate 22 10/19/17 17:00 Blood Pressure 108/74 10/19/17 17:00 O2 Sat by Pulse Oximetry (%) 98 10/19/17 08:08 Constitutional: Well Nourished Eyes: Yes: Conjunctiva Clear HENT: Yes: Atraumatic Neck: Yes: Supple Cardiovascular: Yes: Regular Rate and Rhythm Respiratory: Yes: CTA Bilaterally ...Palpate: Yes: Soft. No: Firm/Rigid, Guarding, Hepatomegaly, Mass, Splenomegaly, Tenderness Labs: CBC, BMP 10/19/17 13:30 10/19/17 05:30 INR, PTT INR 1.03 (0.82-1.09) 10/19/17 05:30 Problem List - Problems (1) Upper GI bleed Assessment/Plan: stable R> advance diet in am possible EGD Tuesday cbc lira avoid frequent blood draw Code(s): K92.2 - GASTROINTESTINAL HEMORRHAGE, UNSPECIFIED
[2017-10-19 23:05] LABS: ANISOCYTOSIS 2+; MACROCYTOSIS 2+; PLATELET ESTIMATE ADEQUATE
[2017-10-20] MEDS: PANTOPRAZOLE SODIUM 80 MG in SODIUM CHLORIDE 100 ML IVPB SCH ×3 (03:03→21:28)
[2017-10-20 06:45] LABS: BASO % 0.4 % (0-2.0); EOS % 2.2 % (0-4.5); HEMATOCRIT 21.1 % (35.4-49); LYMPH % 29.6 % (8-40); MCH 29.2 pg (25.7-33.7); MCHC 33.3 g/dl (32.0-35.9); MEAN CELL VOLUME 87.9 fl (80-96); MEAN PLT VOLUME 9.6 fl (7.5-11.1); MONO % 7.2 % (3.8-10.2); NEUT % 60.6 % (42.8-82.8); PLATELET COUNT 175 K/MM3 (134-434); RDW 14.8 % (11.9-15.9); WHITE BLOOD COUNT 8.9 K/mm3 (4.0-10.0)
[2017-10-20 06:55] LABS: CHLORIDE 109 mmol/L (98-107); POTASSIUM 3.9 mmol/L (3.5-5.1); SGOT/AST 34 U/L (15-37); SODIUM 141 mmol/L (136-145)
[2017-10-20 06:59] LABS: ALBUMIN 2.9 g/dl (3.4-5.0); ALK PHOS 48 U/L (45-117); ANION GAP 6 (8-16); BILIRUBIN,TOTAL 0.1 mg/dL (0.2-1.0); BLOOD UREA NITROGEN 11 mg/dL (7-18); CALCIUM 8.6 mg/dL (8.5-10.1); CO2 26 mmol/L (21-32); CREATININE 1.3 mg/dL (0.7-1.3); GLUCOSE,RANDOM 101 mg/dL (74-106); MAGNESIUM 2.1 mg/dL (1.8-2.4); PHOSPHOROUS 2.8 mg/dL (2.5-4.9); SGPT/ALT 87 U/L (12-78); TOT PROT 5.6 g/dl (6.4-8.2)
[2017-10-20] MEDS: FOLIC ACID 1 MG TABLET (FP) PO SCH (09:15)
[2017-10-20] MEDS: IRON SUCROSE INJECTION 300 MG in SODIUM CHLORIDE 235 ML IVPB SCH (09:15)
--- NOTE | 2017-10-20 10:43 | PN ---
Progress Note, Physician History of Present Illness: going to bathroom no dizziness no bm yet vss tolerating full nliq diet no complainst slightly fatige - Current Medication List Current Medications: Active Medications Cyanocobalamin (Vitamin B12 Injection -) 1,000 mcg IM Tu [facility] Epoetin Jone (Procrit -) 20,000 unit SQ DAILY [facility] Last Admin: 10/19/17 11:51 Dose: 20,000 unit Folic Acid (Folic Acid -) 1 mg PO DAILY [facility] Last Admin: 10/20/17 09:15 Dose: 1 mg Iron Sucrose 300 mg/ Sodium (Chloride) 250 mls @ 250 mls/hr IVPB DAILY@0800 [facility] Last Admin: 10/20/17 09:15 Dose: 250 mls/hr Pantoprazole Sodium 80 mg/ (Sodium Chloride) 100 mls @ 10 mls/hr IVPB Q10H [facility] Last Admin: 10/20/17 03:03 Dose: 10 mls/hr - Objective Vital Signs: Vital Signs Temperature 98.5 F 10/20/17 09:36 Pulse Rate 76 10/20/17 09:59 Respiratory Rate 17 10/20/17 09:59 Blood Pressure 145/75 10/20/17 09:59 O2 Sat by Pulse Oximetry (%) 99 10/20/17 09:00 Constitutional: Yes: No Distress, Calm Eyes: Yes: WNL HENT: Yes: WNL Neck: Yes: WNL Cardiovascular: Yes: WNL Respiratory: Yes: WNL Gastrointestinal: Yes: WNL ...Rectal Exam: Yes: Guaiac Positive Genitourinary: Yes: WNL Breast(s): Yes: WNL Musculoskeletal: Yes: WNL Labs: CBC, BMP 10/20/17 05:30 10/20/17 05:30 INR, PTT INR 1.03 (0.82-1.09) 10/19/17 05:30 Problem List - Problems (1) Upper GI bleed Code(s): K92.2 - GASTROINTESTINAL HEMORRHAGE, UNSPECIFIED (2) Anemia Code(s): D64.9 - ANEMIA, UNSPECIFIED Assessment/Plan cbc in am if above 7.o gi will egd advance reg diet npo thomas nj
[2017-10-20 11:16] LABS: ANISOCYTOSIS 1+; MACROCYTOSIS 0; PLATELET ESTIMATE NORMAL
--- NOTE | 2017-10-20 11:31 | PN ---
Teaching Attending Note Name of Resident: Shine Bradshaw ATTENDING PHYSICIAN STATEMENT I saw and evaluated the patient. I reviewed the resident's note and discussed the case with the resident. I agree with the resident's findings and plan as documented. SUBJECTIVE: Pt seen and examined in the ICU. No further bleeding. H/H stable. No shortness of breath or chest pain. OBJECTIVE: Vital Signs Period Temp Pulse Resp BP Sys/[place] Pulse Ox Last 24 Hr 98.3 F-98.6 F 71-88 14-22 108-152/54-92 98-99 Intake & Output 10/17/17 10/18/17 10/19/17 10/20/17 23:59 23:59 23:59 23:59 Intake Total 375 2775 370 Output Total 500 1500 300 Balance -125 1275 70 Weight 110.223 kg 110.223 kg Gen: NAD in chair Heart: RRR Lung: decreased breath sounds at the bases Abd: soft, nontender Ext: no edema CBC, BMP 10/20/17 05:30 10/20/17 05:30 Active Medications Cyanocobalamin (Vitamin B12 Injection -) 1,000 mcg IM Tu [facility] Epoetin Jone (Procrit -) 20,000 unit SQ DAILY [facility] Last Admin: 10/19/17 11:51 Dose: 20,000 unit Folic Acid (Folic Acid -) 1 mg PO DAILY [facility] Last Admin: 10/20/17 09:15 Dose: 1 mg Iron Sucrose 300 mg/ Sodium (Chloride) 250 mls @ 250 mls/hr IVPB DAILY@0800 [facility] Last Admin: 10/20/17 09:15 Dose: 250 mls/hr Pantoprazole Sodium 80 mg/ (Sodium Chloride) 100 mls @ 10 mls/hr IVPB Q10H [facility] Last Admin: 10/20/17 03:03 Dose: 10 mls/hr ASSESSMENT AND PLAN: Anemia r/o GI Bleed HTN Mormon - monitor H/H - continue procrit, vitamin B12, folate - venofer - PO per GI - protonix - for endoscopy - DVT prophylaxis - can monitor on floor
[2017-10-20] MEDS ORDERED: PT OWN MED DRAWER 7, Y5N ONE (12:49)
[2017-10-20] MEDS: EPOETIN ALFA 20,000 UNIT/1 ML VIAL SQ SCH ×2 (12:50→16:11)
--- NOTE | 2017-10-20 16:38 | PN ---
Progress Note (short form) - Note Progress Note: Renal follow up for CKD Pt seen and examined at the bedside no acute complaints no more melena no sob, chest pain Vital Signs Temperature 98.5 F 10/20/17 09:36 Pulse Rate 74 10/20/17 12:00 Respiratory Rate 17 10/20/17 12:00 Blood Pressure 161/74 10/20/17 12:00 O2 Sat by Pulse Oximetry (%) 99 10/20/17 09:00 Intake & Output 10/17/17 10/18/17 10/19/17 10/20/17 23:59 23:59 23:59 23:59 Intake Total 375 2775 370 Output Total 500 1500 300 Balance -125 1275 70 Weight 110.223 kg 110.223 kg NAD awake and alert RRR, No M/R CTA No edema CBC, BMP 10/20/17 05:30 10/20/17 05:30 Current Medications Cyanocobalamin (Vitamin B12 Injection -) 1,000 mcg IM Tu [facility] Epoetin Jone (Procrit -) 20,000 unit SQ DAILY [facility] Last Admin: 10/20/17 16:11 Dose: 20,000 unit Folic Acid (Folic Acid -) 1 mg PO DAILY [facility] Pantoprazole Sodium 80 mg/ (Sodium Chloride) 100 mls @ 10 mls/hr IVPB Q10H [facility] Iron Sucrose 300 mg/ Sodium (Chloride) 250 mls @ 250 mls/hr IVPB DAILY@0800 [facility] 67 year old Gentleman with PMhx of Hypertension, Gastic ulcers who presented with dizziness and found to have acute anemia in setting of GI bleed and SUJIT. #SUJIT vs. CKD #Acute GI bleed #Acute Anemia #Hx of Hypertension Renal function stable off IVF Hgb stable, no further melena continue procrit and iron as per heme endoscopic evaluation tomorrow minimize blood draws Blayne Lopez DO
--- NOTE | 2017-10-20 18:25 | PN ---
GI Progress Note Subjective: no active bleeding, tolerated diet - Objective Vital Signs: Vital Signs Temperature 98.6 F 10/20/17 14:00 Pulse Rate 77 10/20/17 14:00 Respiratory Rate 18 10/20/17 18:12 Blood Pressure 120/71 10/20/17 14:00 O2 Sat by Pulse Oximetry (%) 99 10/20/17 18:12 Constitutional: Well Nourished Eyes: Yes: Conjunctiva Clear HENT: Yes: Atraumatic, Tonsillar Exudate Cardiovascular: Yes: Regular Rate and Rhythm Respiratory: Yes: CTA Bilaterally ...Palpate: Yes: Soft. No: Firm/Rigid, Guarding, Hepatomegaly, Mass, Pulsatile Mass, Splenomegaly, Tenderness Labs: CBC, BMP 10/20/17 05:30 10/20/17 05:30 INR, PTT INR 1.03 (0.82-1.09) 10/19/17 05:30 Problem List - Problems (1) Upper GI bleed Assessment/Plan: for EGD in am NPO after midnight Code(s): K92.2 - GASTROINTESTINAL HEMORRHAGE, UNSPECIFIED
--- NOTE | 2017-10-20 23:49 | PN ---
Progress Note (short form) - Note Progress Note: Patient seen and examined Feels well Vital Signs Temperature 98.6 F 10/20/17 14:00 Pulse Rate 77 10/20/17 14:00 Respiratory Rate 18 10/20/17 18:12 Blood Pressure 120/71 10/20/17 14:00 O2 Sat by Pulse Oximetry (%) 99 10/20/17 18:12 Constitutional: Well Nourished Eyes: Yes: Conjunctiva Clear HENT: Yes: Atraumatic, Tonsillar Exudate Cardiovascular: Yes: Regular Rate and Rhythm Respiratory: Yes: CTA Bilaterally ...Palpate: Yes: Soft. No: Firm/Rigid, Guarding, Hepatomegaly, Mass, Pulsatile Mass, Splenomegaly, Tenderness A/P 67 y/o patient Yazidi with GI bleeding Receiving hematinics with procrit , venofer, B-12, and folate Hb- 7,7 on admission . Either from dilution or bleeding or both declined to 6.5g. Steady increment to 6.8g and now 7g.. Plan: GI endocopy tomorrow Continue Hematinics
[2017-10-21] MEDS ORDERED: PROPOFOL 20 ML ONE (07:24)
[2017-10-21] MEDS ORDERED: LIDOCAINE HCL/PF 2% SDV 5ML VIAL ONE (07:24)
[2017-10-21] MEDS ORDERED: ETOMIDATE 20 MG/10 ML AMPUL IVPUSH ONE (07:24)
[2017-10-21] MEDS ORDERED: IRON SUCROSE INJECTION 300 MG in SODIUM CHLORIDE 235 ML IVPB SCH (08:00)
[2017-10-21] MEDS: PANTOPRAZOLE SODIUM 80 MG in SODIUM CHLORIDE 100 ML IVPB SCH (09:50)
--- NOTE | 2017-10-21 09:56 | PN ---
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 also noted stay away fromn ruggage softer ddiet egd out pt botox tx to relaxe spincter hemo to see if d/c ok on out pt procrit iron po - Current Medication List Current Medications: Active Medications Cyanocobalamin (Vitamin B12 Injection -) 1,000 mcg IM Tu [facility] Epoetin Jone (Procrit -) 20,000 unit SQ DAILY [facility] Last Admin: 10/20/17 16:11 Dose: 20,000 unit Folic Acid (Folic Acid -) 1 mg PO DAILY [facility] Iron Sucrose 300 mg/ Sodium (Chloride) 250 mls @ 250 mls/hr IVPB DAILY@0800 [facility] - Objective Vital Signs: Vital Signs Temperature 98.0 F 10/21/17 08:40 Pulse Rate 81 10/21/17 08:40 Respiratory Rate 17 10/21/17 08:40 Blood Pressure 141/74 10/21/17 08:40 O2 Sat by Pulse Oximetry (%) 98 10/21/17 08:30 Labs: CBC, BMP 10/20/17 05:30 10/20/17 05:30 INR, PTT INR 1.03 (0.82-1.09) 10/19/17 05:30 Problem List - Problems (1) Upper GI bleed Code(s): K92.2 - GASTROINTESTINAL HEMORRHAGE, UNSPECIFIED (2) Anemia Code(s): D64.9 - ANEMIA, UNSPECIFIED
[2017-10-21] MEDS ORDERED: PANTOPRAZOLE SOD 40 MG SUSPENSION PACKET PO SCH (10:00)
[2017-10-21] MEDS ORDERED: FOLIC ACID 1 MG TABLET (FP) PO SCH (10:00)
[2017-10-21] MEDS: EPOETIN ALFA 20,000 UNIT/1 ML VIAL SQ SCH (10:57)
[2017-10-21 11:06] LABS: BASO % 0.1 % (0-2.0); EOS % 1.6 % (0-4.5); HEMATOCRIT 24.3 % (35.4-49); HEMOGLOBIN 7.7 GM/dL (11.7-16.9); LYMPH % 22.3 % (8-40); MCH 28.8 pg (25.7-33.7); MCHC 31.8 g/dl (32.0-35.9); MEAN CELL VOLUME 90.5 fl (80-96); MEAN PLT VOLUME 9.4 fl (7.5-11.1); MONO % 7.8 % (3.8-10.2); NEUT % 68.2 % (42.8-82.8); PLATELET COUNT 217 K/MM3 (134-434); RBC 2.69 M/mm3 (4.00-5.60); RDW 15.8 % (11.9-15.9); WHITE BLOOD COUNT 7.6 K/mm3 (4.0-10.0)
--- NOTE | 2017-10-21 17:54 | PN ---
Progress Note (short form) - Note Progress Note: Patient seen and examined Ulcer found at endoscopy Hct improved Last Vital Signs Temp Pulse Resp BP Pulse Ox 99 F 95 H 17 156/57 98 10/21/17 14:21 10/21/17 14:21 10/21/17 14:21 10/21/17 14:21 10/21/17 09:00 HEENT: DIANA, EOM Intact Cor: RSR, No murmurs, No gallops Lungs: Clear to P&A Abd: Soft, Normal bowel sounds, No organomegaly Ext:No significant edema Skin: No rashes, Integument intact Current Medications Generic Name Dose Route Start Last Admin Trade Name Freq PRN Reason Stop Dose Admin Cyanocobalamin 1,000 mcg 10/25/17 10:00 Vitamin B12 Injection - IM Tu [facility] Epoetin Jone 20,000 unit 10/22/17 10:00 Procrit - SQ DAILY [facility] Folic Acid 1 mg 10/22/17 10:00 Folic Acid - PO DAILY [facility] Iron Sucrose 300 mg/ Sodium 250 mls @ 250 mls/hr 10/22/17 08:00 Chloride IVPB DAILY@0800 [facility] Pantoprazole Sodium 40 mg 10/22/17 10:00 Protonix - PO DAILY [facility] Impression: Jehovah Ulcer bleed Hematinics Hb in AM 7.7 Instructed patient to take Fe++ and Vitamin C upon discharge. Plan: one more day of Procrit and venofer. Problem List - Problems (1) Anemia Code(s): D64.9 - ANEMIA, UNSPECIFIED (2) Upper GI bleed Code(s): K92.2 - GASTROINTESTINAL HEMORRHAGE, UNSPECIFIED
[2017-10-21 21:47] VITALS: BP 132/58; PULSE 90; TEMP 99
[2017-10-22] MEDS ORDERED: EPOETIN ALFA 20,000 UNIT/1 ML VIAL SQ ONE (08:00)
[2017-10-22] MEDS ORDERED: IRON SUCROSE INJECTION 300 MG in SODIUM CHLORIDE 235 ML IVPB SCH (08:00)
[2017-10-22 08:05] LABS: BASO % 0.4 % (0-2.0); EOS % 1.5 % (0-4.5); HEMATOCRIT 26.8 % (35.4-49); HEMOGLOBIN 8.7 GM/dL (11.7-16.9); LYMPH % 25.9 % (8-40); MCH 29.8 pg (25.7-33.7); MCHC 32.6 g/dl (32.0-35.9); MEAN CELL VOLUME 91.3 fl (80-96); MEAN PLT VOLUME 9.5 fl (7.5-11.1); MONO % 6.6 % (3.8-10.2); NEUT % 65.6 % (42.8-82.8); PLATELET COUNT 239 K/MM3 (134-434); RBC 2.94 M/mm3 (4.00-5.60); RDW 17.1 % (11.9-15.9); WHITE BLOOD COUNT 8.6 K/mm3 (4.0-10.0)
[2017-10-22] MEDS ORDERED: PT OWN MED DRAWER 7, Y5N ONE (08:23)
--- NOTE | 2017-10-22 09:40 | DS ---
Physical Examination Vital Signs: Vital Signs Temperature 99.0 F 10/21/17 21:46 Pulse Rate 90 10/21/17 21:46 Respiratory Rate 18 10/21/17 21:46 Blood Pressure 132/58 10/21/17 21:46 O2 Sat by Pulse Oximetry (%) 98 10/21/17 21:00 Constitutional: Yes: Well Nourished, Obese HENT: Yes: WNL Neck: Yes: WNL Cardiovascular: Yes: WNL Respiratory: Yes: WNL Gastrointestinal: Yes: WNL, Vomiting Renal/: Yes: WNL Breast(s): Yes: WNL Musculoskeletal: Yes: WNL, Muscle Weakness Edema: No Integumentary: Yes: WNL Neurological: Yes: WNL ...Motor Strength: WNL Psychiatric: Yes: WNL Labs: CBC, BMP 10/22/17 06:00 10/20/17 05:30 Discharge Summary Reason For Visit: VERTIGO/ANEMIA Current Active Problems Anemia (Acute) Patient is Judaism (Acute) Upper GI bleed (Acute) Condition: Fair - Instructions Diet, Activity, Other Instructions: soft diet take prolosec 20mg bib take iron tid w colace tid all called in at [facility] pharmacy appt w ar 1200noon tuesday Referrals: Maxi Bradshaw MD [Primary Care Provider] - Disposition: HOME - Home Medications Comprehensive Discharge Medication List: Ambulatory Orders Cetirizine HCl [Zyrtec -] 10 mg PO DAILY 10/18/17 Nifedipine ER [Procardia Xl -] 60 mg PO DAILY 10/18/17 Omeprazole 20 mg PO DAILY 10/18/17
[2017-10-22] MEDS ORDERED: FOLIC ACID 1 MG TABLET (FP) PO SCH (10:00)
[2017-10-22] MEDS ORDERED: EPOETIN ALFA 20,000 UNIT/1 ML VIAL SQ SCH (10:00)
[2017-10-22] MEDS ORDERED: PANTOPRAZOLE 40 MG TABLET (FP) PO SCH (10:00)
--- NOTE | 2017-10-24 16:36 | PATH ---
Surgical Pathology Report Patient Name: JOHN SCHAFFER [facility]. Rec. #: [id number] /Age/Gender: 1950 (Age: 67) / M Account: [id number] Location: [address] [place] [address]/[facility] Taken: 10/21/2017 Received: 10/21/2017 Reported: 10/24/2017 Physicians: Chan Perea M.D. Specimen(s) Received A: BX PYLORIC B: BX GASTRIC BODY Clinical History GI bleeding Postoperative diagnosis: Pyloric ulcer Final Diagnosis A. PYLORIC, BIOPSY: PYLORIC MUCOSA WITH ACTIVE CHRONIC INFLAMMATION. POSITIVE FOR INTESTINAL METAPLASIA. IMMUNOSTAIN IS NEGATIVE FOR H. PYLORI ORGANISMS. B. GASTRIC BODY, BIOPSY: GASTRIC MUCOSA WITH MILD CHRONIC GASTRITIS. IMMUNOSTAIN IS NEGATIVE FOR H. PYLORI ORGANISMS. Electronically Signed Paulina Glass M.D. Gross Description A. Received in formalin, labeled "biopsy pylorus" is a patino, irregular portion of soft tissue measuring 0.5 cm. in greatest dimension. The specimen is submitted in toto in one cassette. B. Received in formalin, labeled "biopsy gastric body" are 2 patino, irregular portions of soft tissue measuring 0.3 and 0.7 cm. in greatest dimension. The specimens are submitted in toto in one cassette. 10/21/201710/21/2017
--- NOTE | 2017-10-24 20:33 | EKG ---
Test Reason : Blood Pressure : / mmHG Vent. Rate : 095 BPM Atrial Rate : 095 BPM P-R Int : 152 ms QRS Dur : 116 ms QT Int : 382 ms P-R-T Axes : 078 -39 066 degrees QTc Int : 480 ms NORMAL SINUS RHYTHM LEFT AXIS DEVIATION LEFT VENTRICULAR HYPERTROPHY WITH QRS WIDENING AND REPOLARIZATION ABNORMALITY CANNOT RULE OUT SEPTAL INFARCT , AGE UNDETERMINED ABNORMAL ECG NO PREVIOUS ECGS AVAILABLE Confirmed by MD SHERINE, MARY ANNE ([id number]) on 10/24/2017 8:33:18 PM Referred By: Confirmed By:MARY ANNE BASURTO MD
[2017-10-25] MEDS ORDERED: CYANOCOBALAMIN (VITAMIN B-12) 1000 MCG/1 ML VIAL IM SCH ×3 (10:00)
== END 2017-10-22 11:17 | disposition home or self-care (01) | DRG 378 ==
LOC: JER 09:38 → JERBED 13:15 → J7W 15:54 → JICU 21:40 → J5S 10-20 13:15
PROVIDERS: ADMIT Family Medicine; ATTEND Family Medicine
PROC: 0DD78ZX Extraction of Stomach, Pylorus, Via Natural or Artificial Opening Endoscopic, Diagnostic (ICD-10-PCS; principal; 2017-10-21 07:30)
DX: K25.4 Chronic or unspecified gastric ulcer with hemorrhage (principal); D62 Acute posthemorrhagic anemia; N17.9 Acute kidney failure, unspecified; Z90.5 Acquired absence of kidney; I65.29 Occlusion and stenosis of unspecified carotid artery; I12.9 Hypertensive chronic kidney disease with stage 1 through stage 4 chronic kidney disease, or unspecified chronic kidney disease; N18.9 Chronic kidney disease, unspecified; Z53.29 Procedure and treatment not carried out because of patient's decision for other reasons; I95.1 Orthostatic hypotension; Z87.891 Personal history of nicotine dependence; E66.9 Obesity, unspecified; Z68.28 Body mass index [BMI] 28.0-28.9, adult
CPT/HCPCS: 36415; 70450-TC; 80053; 82272; 83735; 84100; 84484; 85025; 85027; 85610; 88305-TC; 93005; 93010; 99284-25; J0885; J1756; J7030

== ENCOUNTER 2018-03-30 07:42 | Day surgery (SDC) | payer OTHER ==
[2018-03-30 08:28] VITALS: BMI 29.4
[2018-03-30] MEDS ORDERED: BOTULINUM TOXIN A 100 UNITS VIAL IM ONE (08:30)
[2018-03-30 11:57] VITALS: TEMP 97.6
[2018-03-30 12:22] VITALS: PULSE 59
[2018-03-30 12:43] VITALS: BP 110/64
== END 2018-03-30 12:32 | disposition home or self-care (01) ==
LOC: JASU-ENDO 07:42
PROVIDERS: ATTEND Internal Medicine Gastroenterology
PROC: 3E0G8GC Introduction of Other Therapeutic Substance into Upper GI, Via Natural or Artificial Opening Endoscopic (ICD-10-PCS; principal; 2018-03-30 09:30)
DX: K31.3 Pylorospasm, not elsewhere classified (principal)